=== PATIENT | female | born 1990 | race Caucasian/White ===

== ENCOUNTER 2016-03-22 01:53 | Emergency (ER) | payer OTHER ==
[~2016-03-22] VITALS: Ht 149.8 cm; Wt 98.4 kg
[~2016-03-22 01:53] MED LIST: ANTIVERT25 MG PO; BACTRIM DS 8001 TA1 PO; BIRTH CONTROL IMPLAN; BIRTH CONTROL1 EAC1 PO; CATAFLAM50 MG PO; CIPRO250 MG PO; CLARITIN10 MG PO; DARVOCET N 1001 TAB PO; DIFLUCAN150 MG PO; FLEXERIL5 MG PO; IBUPROFEN600 MG PO; LINZESS145 MC1 PO; MACROBID100 M1 PO; MOBIC15 MG PO; MOTRIN600 MG PO; MOTRIN800 MG PO; NAPROSYN500 MG PO; NEXPLANON68 M2 SQ; NITROFURANTOIN100 M2 PO; PRENATAL1 TA7 PO; ULTRAM50 MG PO; ZANTAC 150150 MG PO; ZANTAC150 MG PO; ZITHROMAX Z PA250 MG PO; ZOFRAN ODT4 MG SL; Zofran4 MG PO
[2016-03-22 02:00] VITALS: BP 139/86
[2016-03-22] MEDS ORDERED: TYLENOL325 M1 PO (02:41)
[2016-04-23] MEDS ORDERED: ZOVIRAX800 MG PO (09:32)
[2016-05-03] MEDS ORDERED: DELTASONE20 M1 PO (03:51)
[2016-05-03] MEDS ORDERED: IBU800 M1 PO (03:51)
[2016-05-03] MEDS ORDERED: ZOFRAN ODT4 MG SL (03:51)
== END 2016-03-22 03:52 | disposition home or self-care (01) ==
LOC: ED 01:53
DX: S93.401A Sprain of unspecified ligament of right ankle, initial encounter (principal); Z98.890 Other specified postprocedural states; Z91.040 Latex allergy status; W18.49XA Other slipping, tripping and stumbling without falling, initial encounter; Y93.89 Activity, other specified; Y92.69 Other specified industrial and construction area as the place of occurrence of the external cause; Y99.9 Unspecified external cause status

== ENCOUNTER 2016-09-19 10:49 | Emergency (ER) | payer OTHER ==
[~2016-09-19] VITALS: Ht 149.8 cm; Wt 98.4 kg
[~2016-09-19 10:49] MED LIST changes: +DELTASONE20 M1 PO; +IBU800 M1 PO; +TYLENOL325 M1 PO; +ZOVIRAX800 MG PO
[2016-09-19 11:12] VITALS: BP 137/98
[2016-09-19] MEDS ORDERED: NAPROSYN500 MG PO (13:37)
[2016-09-19] MEDS ORDERED: CYCLOBENZAPRINE5 M3 PO (13:37)
== END 2016-09-19 13:42 | disposition home or self-care (01) ==
LOC: ED 10:49
DX: S39.012A Strain of muscle, fascia and tendon of lower back, initial encounter (principal); Z91.040 Latex allergy status; Z91.030 Bee allergy status; X58.XXXA Exposure to other specified factors, initial encounter; Y93.89 Activity, other specified; Y92.89 Other specified places as the place of occurrence of the external cause; Y99.8 Other external cause status

== ENCOUNTER 2017-01-31 22:05 | Emergency (ER) | payer OTHER ==
[~2017-01-31] VITALS: Ht 149.8 cm; Wt 102.1 kg
[~2017-01-31 22:05] MED LIST changes: +CYCLOBENZAPRINE5 M3 PO
[2017-01-31 22:26] VITALS: BP 130/96
== END 2017-01-31 23:07 | disposition home or self-care (01) ==
LOC: ED 22:05
DX: J40 Bronchitis, not specified as acute or chronic (principal); J02.9 Acute pharyngitis, unspecified; Z91.040 Latex allergy status; Z91.030 Bee allergy status; Z88.8 Allergy status to other drugs, medicaments and biological substances

== ENCOUNTER 2017-04-23 16:01 | Emergency (ER) | payer OTHER ==
[~2017-04-23] VITALS: Ht 149.8 cm; Wt 108.9 kg
[2017-04-23 16:20] VITALS: BP 142/88
[2017-04-23] MEDS ORDERED: ZOFRAN ODT4 MG SL (17:48)
[2017-04-23] MEDS ORDERED: PROAIR HFA8.5 GM INH (17:48)
[2017-04-23] MEDS ORDERED: TESSALON PERLE100 M1 PO (17:48)
== END 2017-04-23 17:59 | disposition home or self-care (01) ==
LOC: ED 16:01
DX: B34.9 Viral infection, unspecified (principal); Z98.890 Other specified postprocedural states; Z91.040 Latex allergy status; Z91.030 Bee allergy status

== ENCOUNTER → 2018-05-26 | Outpatient (CLI) | payer OTHER ==
[~2018-05-26] MED LIST changes: +LEVAQUIN250 M1 PO; +Motrin,Rufen800 MG PO; +PROAIR HFA8.5 GM INH; +TESSALON PERLE100 M1 PO
--- NOTE | ~2018-05-26 | HM ---
[place], [place] HOLTER MONITOR REPORT NAME: HOSEA MCMANUS UNIT #: [id number] ROOM: DOCTOR: ILDA PIZANO,QUENTIN BIRTHDATE: [birth year] DOS: 48-HOUR HOLTER MONITOR The patient with palpitations underwent 48-hour Holter monitor. The patient remained in sinus rhythm. Minimum heart rate of 58, average heart rate of 86. Maximum heart rate of 160 beats per minute. No significant ventricular or supraventricular dysrhythmia is present. The patient had few episodes of what appears to be sinus tachycardia. No ventricular dysrhythmia. No significant pauses. Isolated PACs are present. Sinus rhythm with episodes of sinus tachycardia, isolated PACs, no significant ventricular or supraventricular dysrhythmia. QUENTIN GONSALES MD CM:HOLTER:HOLTER MONITOR REPORT [id number] QUENTIN GONSALES MD
== END | disposition home or self-care (01) ==
LOC: CARD 10:30
DX: I49.9 Cardiac arrhythmia, unspecified (principal); R00.2 Palpitations

== ENCOUNTER 2018-11-13 18:58 | Emergency (ER) | payer OTHER ==
[~2018-11-13] VITALS: Ht 149.8 cm; Wt 88.5 kg
[2018-11-13 19:00] VITALS: BP 145/87
[2018-11-13] MEDS ORDERED: PREDNISONE50 MG PO (20:30)
== END 2018-11-13 20:35 | disposition home or self-care (01) ==
LOC: ED 18:58
DX: M26.622 Arthralgia of left temporomandibular joint (principal); G43.909 Migraine, unspecified, not intractable, without status migrainosus; Z91.040 Latex allergy status; Z91.030 Bee allergy status

== ENCOUNTER 2019-01-13 15:04 | Inpatient (IN) | payer OTHER ==
[~2019-01-13] VITALS: Ht 149.9 cm; Wt 91.3 kg
[~2019-01-13 15:04] MED LIST changes: +PREDNISONE50 MG PO
[2019-01-13 16:00] VITALS: BP 138/89
[2019-01-13 16:20] VITALS: BP 138/89
--- NOTE | 2019-01-13 16:20 | NUR ---
28 year old 27 admitted to room # female for stabilization. 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 Compliant with admission procedure. Patient denies any anxiety.
--- NOTE | 2019-01-13 16:55 | NUR ---
PATIENT MEETS [facility]. CINA=15, CIWA=17. PATIENT IS WANTING RESIDENTIAL TREATMENT AT [facility]. [place] STAFF WILL SEND REFERRAL TO FACILITY. NAOMY WARNER B.A. ENAMEL PULVERIZER
[2019-01-13 17:00] VITALS: BP 138/99
[2019-01-13 18:35] LABS: BILIRUBIN NEGATIVE (NEGATIVE); BLOOD NEGATIVE (NEGATIVE); CLARITY SL CLOUDY (CLEAR); COLOR YELLOW (YELLOW); GLUCOSE NEGATIVE (NEGATIVE); KETONE NEGATIVE (NEGATIVE); LEUKO ESTERASE NEGATIVE (NEGATIVE); NITRITE NEGATIVE (NEGATIVE); SPECIFIC GRAVITY 1.025 (1.005-1.030); UROBILINOGEN 0.2 E.U./dl (0.2-1.0)
[2019-01-13 18:43] LABS: BACTERIA 3+
[2019-01-13 18:51] LABS: URINE AMPHETAMINES < 1000 (1000ng/ml); URINE BARBITURATES < 200 (200ng/ml); URINE BENZODIAZEPINES < 200 (200ng/ml); URINE CANNABINOIDS (THC) < 50 (50ng/ml); URINE COCAINE < 300 (300ng/ml); URINE METHADONE < 300 (300ng/ml); URINE OPIATES < 300 (300ng/ml)
[2019-01-13 18:58] LABS: URINE PHENCYCLIDINE < 25 (25ng/ml)
[2019-01-13 19:13] LABS: BASO % 0.2 % (0.0-1.0); EOS # 0.1 10*3/uL (0.0-0.4); EOS % 0.5 % (1.0-4.0); HEMOGLOBIN 11.1 g/dl (12.0-16.0); LYMPH # 2.7 10*3/uL (1.3-4.4); LYMPH % 24.5 % (27.0-41.0); MEAN CELL VOLUME 84.4 fl (81.0-99.0); MEAN CORPUSCULAR HGB 27.5 pg (27.0-31.0); MEAN CORPUSCULAR HGB CONC 32.6 g/dl (33.0-37.0); MEAN PLATELET VOLUME 12.1 fl (9.6-12.3); MONO # 0.6 10*3/uL (0.1-1.0); MONO % 5.6 % (3.0-9.0); NEUT # 7.6 10*3/uL (2.3-7.9); NEUT % 68.9 % (47.0-73.0); PLATELET COUNT AUTOMATED 314 10*3/uL (130-400); RED BLOOD COUNT 4.03 10*6/uL (4.10-5.10); RED CELL DISTRI WIDTH 15.4 % (0-14.5)
[2019-01-13 19:23] LABS: INTERNATIONAL NORM RATIO 0.9 (2.0-3.5)
--- NOTE | 2019-01-13 19:47 | NUR ---
PATIENT C/O HEADACHE MEDICATED WITH MOTRIN WILL CHECK EFFECTIVENESS.
[2019-01-13 20:00] VITALS: BP 111/66
[2019-01-13 20:06] LABS: ALBUMIN 3.5 gm/dl (3.1-4.5); ALKALINE PHOSPHATASE 56 U/L (45-117); BUN 5 mg/dl (7-24); CHLORIDE 107 mmol/L (98-107); CREATININE 0.78 mg/dL (0.55-1.02); LIPASE 119 U/L (73-393); POTASSIUM 3.7 mmol/L (3.5-5.1); SGOT/AST 28 IU/L (3-35); SGPT/ALT 25 U/L (12-78); SODIUM 139 mmol/L (136-145); TOTAL PROTEIN 7.1 gm/dL (6.4-8.2)
[2019-01-13 20:10] LABS: BETA-HCG, QUANT < 1.0 mIU/mL (1-3); ETHYL ALCOHOL < 3.0 mg/dl (<3)
--- NOTE | 2019-01-13 22:17 | NUR ---
PATIENT MEDICATE WITH ROBAXIN AND TRAZADONE PER REQUEST FOR COMPLAINTS OF MUSCLE ACHES. WILL CHECK EFFECTIVENESS. PER PATIENT MOTRIN EFFECTIVE.
[2019-01-14] VITALS: BP 103/51
[2019-01-14 08:00] VITALS: BP 116/53
--- NOTE | 2019-01-14 11:08 | NUR ---
PATIENT HAS BEEN ACCEPTED TO [facility] IN [place] FOR RESIDENTIAL TREATMENT. THEY HAVE A BED AVAILBLE FOR HER ON FRIDAY, January BY NOON. [place] STAFF WILL SET UP TRANSPORATION FOR HER THROUGH HER INSURANCE. NAOMY WARNER B.A. BLOWER ROOM ATTENDANT
[2019-01-14 12:00] VITALS: BP 120/56
[2019-01-14 16:00] VITALS: BP 110/86
[2019-01-14 20:00] VITALS: BP 121/70
--- NOTE | 2019-01-14 22:10 | NUR ---
PATIENT REFUSES TO TAKE SCHEDULED ATIVAN. STATES THAT SHE IS NOT HAVING ANY SYMPTOMS OF WITHDRAWAL AND DOES NOT FEEL SHE NEEDS TO TAKE THE ATIVAN. PATIENT EDUCATED ON WITHDRAWAL SYMPTOMS AND PREVENTING THEM.
[2019-01-15] VITALS: BP 144/76; BP 144/95
--- NOTE | 2019-01-15 01:52 | NUR ---
PATIENT REQUESTING SLEEPING MEDICATION AT THIS TIME. STATES SHE IS UNABLE TO FALL ASLEEP. TRAZADONE ADMINISTERED PRESCRIBED. WILL MONITOR FOR EFFECTIVENESS.
--- NOTE | 2019-01-15 02:44 | NUR ---
24 HR chart check completed.
--- NOTE | 2019-01-15 07:05 | NUR ---
ARRIVED ON SHIFT. INTRODUCED TO PATIENT, BEDSIDE REPORT RECEIVED, ASSISTED PATIENT ONTO BED OSHEA, WHITE BOARD UPDATED.
--- NOTE | 2019-01-15 07:57 | NUR ---
Shift chart check completed.
[2019-01-15 08:00] VITALS: BP 122/76
[2019-01-15 12:00] VITALS: BP 110/62
--- NOTE | 2019-01-15 16:05 | NUR ---
CALL PLACED TO DR. KEVIN, ADVISED THAT PATIENT WAS LEAVING AMA.
--- NOTE | 2019-01-15 16:10 | NUR ---
Patient signed out AMA. Patient encouraged to stay and advised of possible consequences of premature discharge. Physician DR. KEVIN and pigment making supervisor AUSTIN notified. Patient instructed what to do regarding care post-departure from the hospital; emergency phone numbers provided. Patent was accompanied by SELF, NO IV, NO MONITOR. JANET MICHELLE
== END 2019-01-15 16:10 | disposition left against medical advice (07) | DRG 770 ==
LOC: 5E 15:04
PROVIDERS: Hospitalist; ADMIT Internal Medicine
DX: F19.930 Other psychoactive substance use, unspecified with withdrawal, uncomplicated (principal); F10.10 Alcohol abuse, uncomplicated; R11.0 Nausea; D64.9 Anemia, unspecified; Z53.29 Procedure and treatment not carried out because of patient's decision for other reasons; G43.909 Migraine, unspecified, not intractable, without status migrainosus; R73.9 Hyperglycemia, unspecified; E66.01 Morbid (severe) obesity due to excess calories; Z68.41 Body mass index [BMI] 40.0-44.9, adult; Z98.891 History of uterine scar from previous surgery; Z98.51 Tubal ligation status; Z81.1 Family history of alcohol abuse and dependence; Z83.3 Family history of diabetes mellitus; Z81.3 Family history of other psychoactive substance abuse and dependence; Z91.030 Bee allergy status; Z91.040 Latex allergy status; Z91.018 Allergy to other foods

== ENCOUNTER 2019-02-11 20:11 | Emergency (ER) | payer OTHER ==
[~2019-02-11] VITALS: Ht 149.8 cm; Wt 88.5 kg
[2019-02-11 20:12] VITALS: BP 142/86
== END 2019-02-11 23:56 | disposition home or self-care (01) ==
LOC: ED 20:11
DX: G43.909 Migraine, unspecified, not intractable, without status migrainosus (principal); J45.909 Unspecified asthma, uncomplicated; I10 Essential (primary) hypertension; F17.200 Nicotine dependence, unspecified, uncomplicated; Z91.018 Allergy to other foods; Z91.040 Latex allergy status; Z91.030 Bee allergy status

== ENCOUNTER 2019-07-21 23:04 | Inpatient (IN) | payer OTHER ==
[~2019-07-21] VITALS: Ht 149.9 cm; Wt 96.6 kg
[2019-07-21 20:00] VITALS: BP 126/68
[2019-07-21 23:13] VITALS: BP 117/64
[2019-07-22] VITALS (7 sets, daily range): BP systolic 99–122; BP diastolic 56–81
[2019-07-22 00:29] LABS: HEMATOCRIT 35.9 % (37.0-47.0); MEAN CORPUSCULAR HGB 25.6 pg (27.0-31.0); MEAN PLATELET VOLUME 11.5 fl (9.6-12.3); PLATELET COUNT AUTOMATED 333 10*3/uL (130-400); RED BLOOD COUNT 4.49 10*6/uL (4.10-5.10); RED CELL DISTRI WIDTH 15.3 % (0-14.5)
[2019-07-22 00:43] LABS: ALBUMIN 3.3 gm/dl (3.1-4.5); ALKALINE PHOSPHATASE 67 U/L (45-117); BUN 9 mg/dl (7-24); CHLORIDE 108 mmol/L (98-107); CREATININE 0.77 mg/dL (0.55-1.02); LIPASE 52 U/L (73-393); POTASSIUM 3.4 mmol/L (3.5-5.1); SGOT/AST 9 IU/L (3-35); SGPT/ALT 24 U/L (12-78); SODIUM 138 mmol/L (136-145); TOTAL PROTEIN 7.3 gm/dL (6.4-8.2)
[2019-07-22 00:52] LABS: BILIRUBIN NEGATIVE (NEGATIVE); BLOOD 2+ (NEGATIVE); CLARITY SL CLOUDY (CLEAR); COLOR YELLOW (YELLOW); GLUCOSE NEGATIVE (NEGATIVE); KETONE NEGATIVE (NEGATIVE); LEUKO ESTERASE 1+ (NEGATIVE); NITRITE NEGATIVE (NEGATIVE); SPECIFIC GRAVITY 1.015 (1.005-1.030); UROBILINOGEN 0.2 E.U./dl (0.2-1.0)
[2019-07-22 00:54] LABS: PLATELET SUFFICIENCY NORMAL (NORMAL); TOTAL CELLS COUNTED 100 #CELLS
[2019-07-22 00:55] LABS: EPITHELIAL CELLS 31-40
[2019-07-22 01:00] LABS: WBC 31-40 wbc/hpf (0-5)
[2019-07-22 02:25] LABS: HEMATOCRIT 33.6 % (37.0-47.0); MEAN CELL VOLUME 80.8 fl (81.0-99.0); MEAN CORPUSCULAR HGB 25.7 pg (27.0-31.0); MEAN CORPUSCULAR HGB CONC 31.8 g/dl (33.0-37.0); MEAN PLATELET VOLUME 10.8 fl (9.6-12.3); PLATELET COUNT AUTOMATED 285 10*3/uL (130-400); RED BLOOD COUNT 4.16 10*6/uL (4.10-5.10); RED CELL DISTRI WIDTH 15.1 % (0-14.5); WHITE BLOOD COUNT 31.1 10*3/uL (4.8-10.8)
[2019-07-22 02:46] LABS: PLATELET SUFFICIENCY NORMAL (NORMAL); TOTAL CELLS COUNTED 100 #CELLS
[2019-07-22 11:09] LABS: URINE AMPHETAMINES < 1000 (1000ng/ml); URINE BARBITURATES < 200 (200ng/ml); URINE BENZODIAZEPINES < 200 (200ng/ml); URINE CANNABINOIDS (THC) < 50 (50ng/ml); URINE COCAINE < 300 (300ng/ml); URINE METHADONE < 300 (300ng/ml); URINE OPIATES > 300 (300ng/ml)
[2019-07-22 11:10] LABS: URINE PHENCYCLIDINE < 25 (25ng/ml)
[2019-07-22] MEDS ORDERED: TRAZODONE100 MG PO (14:27)
[2019-07-23] VITALS: BP 129/78
[2019-07-23 06:27] LABS: BASO % 0.1 % (0.0-1.0); EOS # 0.1 10*3/uL (0.0-0.4); EOS % 0.5 % (1.0-4.0); HEMATOCRIT 33.5 % (37.0-47.0); LYMPH # 2.2 10*3/uL (1.3-4.4); LYMPH % 10.8 % (27.0-41.0); MEAN CELL VOLUME 82.3 fl (81.0-99.0); MEAN CORPUSCULAR HGB 25.3 pg (27.0-31.0); MEAN CORPUSCULAR HGB CONC 30.7 g/dl (33.0-37.0); MEAN PLATELET VOLUME 11.2 fl (9.6-12.3); MONO # 0.6 10*3/uL (0.1-1.0); MONO % 2.8 % (3.0-9.0); NEUT # 17.7 10*3/uL (2.3-7.9); PLATELET COUNT AUTOMATED 285 10*3/uL (130-400); RED BLOOD COUNT 4.07 10*6/uL (4.10-5.10); RED CELL DISTRI WIDTH 15.7 % (0-14.5); WHITE BLOOD COUNT 20.8 10*3/uL (4.8-10.8)
[2019-07-23 06:44] LABS: BUN 9 mg/dl (7-24); CHLORIDE 111 mmol/L (98-107); CHOLESTEROL 163 mg/dL (<200); CREATININE 0.84 mg/dL (0.55-1.02); HDL CHOLESTEROL 38 mg/dl (40-60); LDL CHOLESTEROL 97 mg/dL (9-159); SODIUM 142 mmol/L (136-145); TRIGLYCERIDES 138 mg/dl (<150); VLDL CHOLESTEROL 28 mg/dL (6-40)
[2019-07-23 06:51] LABS: THYROID STIM HORMONE (HS) 0.246 uIU/ml (0.358-4.75)
[2019-07-23 12:00] VITALS: BP 127/79
[2019-07-23 16:00] VITALS: BP 106/57
[2019-07-23 20:00] VITALS: BP 126/68
[2019-07-24] VITALS: BP 99/57
[2019-07-24 06:19] LABS: BASO % 0.1 % (0.0-1.0); EOS # 0.4 10*3/uL (0.0-0.4); EOS % 2.6 % (1.0-4.0); HEMATOCRIT 31.7 % (37.0-47.0); LYMPH # 2.9 10*3/uL (1.3-4.4); LYMPH % 21.4 % (27.0-41.0); MEAN CELL VOLUME 81.1 fl (81.0-99.0); MEAN CORPUSCULAR HGB 25.1 pg (27.0-31.0); MEAN CORPUSCULAR HGB CONC 30.9 g/dl (33.0-37.0); MEAN PLATELET VOLUME 11.3 fl (9.6-12.3); MONO # 0.7 10*3/uL (0.1-1.0); MONO % 4.8 % (3.0-9.0); NEUT # 9.7 10*3/uL (2.3-7.9); NEUT % 70.4 % (47.0-73.0); PLATELET COUNT AUTOMATED 315 10*3/uL (130-400); RED BLOOD COUNT 3.91 10*6/uL (4.10-5.10); RED CELL DISTRI WIDTH 15.6 % (0-14.5); WHITE BLOOD COUNT 13.7 10*3/uL (4.8-10.8)
[2019-07-24 06:40] LABS: BUN 5 mg/dl (7-24); CHLORIDE 113 mmol/L (98-107); CREATININE 0.66 mg/dL (0.55-1.02); POTASSIUM 3.1 mmol/L (3.5-5.1); SODIUM 142 mmol/L (136-145)
[2019-07-24 08:00] VITALS: BP 118/61
[2019-07-24 12:00] VITALS: BP 137/71
[2019-07-24 12:15] VITALS: BP 128/80
[2019-07-24] MEDS ORDERED: CIPRO500 MG PO (14:34)
[2019-07-24] MEDS ORDERED: FLAGYL500 MG PO (14:34)
[2019-07-24] MEDS ORDERED: PROTONIX40 MG PO (14:34)
== END 2019-07-24 14:40 | disposition left against medical advice (07) | DRG 720 ==
LOC: ED 23:04 → EDHOLD 07-22 08:23 → 4E 07-22 08:23
PROVIDERS: Emergency Medicine; Student in an Organized Health Care Education/Training Program; ADMIT Internal Medicine
PROC: 0DB68ZX Excision of Stomach, Via Natural or Artificial Opening Endoscopic, Diagnostic (ICD-10-PCS; principal; 2019-07-24)
PROC: 0DJD8ZZ Inspection of Lower Intestinal Tract, Via Natural or Artificial Opening Endoscopic (ICD-10-PCS; 2019-07-24)
DX: A41.9 Sepsis, unspecified organism (principal); E87.6 Hypokalemia; E87.8 Other disorders of electrolyte and fluid balance, not elsewhere classified; K52.9 Noninfective gastroenteritis and colitis, unspecified; R73.9 Hyperglycemia, unspecified; F12.10 Cannabis abuse, uncomplicated; F10.230 Alcohol dependence with withdrawal, uncomplicated; Y90.9 Presence of alcohol in blood, level not specified; R48.0 Dyslexia and alexia; F33.0 Major depressive disorder, recurrent, mild; F41.1 Generalized anxiety disorder; K29.20 Alcoholic gastritis without bleeding; N30.01 Acute cystitis with hematuria; A59.9 Trichomoniasis, unspecified; K57.30 Diverticulosis of large intestine without perforation or abscess without bleeding; D50.0 Iron deficiency anemia secondary to blood loss (chronic); K62.5 Hemorrhage of anus and rectum; Z53.29 Procedure and treatment not carried out because of patient's decision for other reasons; Z81.1 Family history of alcohol abuse and dependence; Z83.3 Family history of diabetes mellitus; Z91.030 Bee allergy status; Z91.040 Latex allergy status; Z91.018 Allergy to other foods; Z79.899 Other long term (current) drug therapy

== ENCOUNTER 2020-12-10 18:42 | Emergency (ER) | payer OTHER ==
[~2020-12-10] VITALS: Ht 149.8 cm; Wt 90.7 kg
[~2020-12-10 18:42] MED LIST changes: +CIPRO500 MG PO; +FLAGYL500 MG PO; +PROTONIX40 MG PO; +TRAZODONE100 MG PO
[2020-12-10 18:48] VITALS: BP 142/97
[2020-12-11] MEDS ORDERED: AUGMENTIN 875875 MG PO (02:06)
== END 2020-12-11 03:00 | disposition home or self-care (01) ==
LOC: ED 18:42
DX: J02.9 Acute pharyngitis, unspecified (principal); Z20.822 Contact with and (suspected) exposure to COVID-19; R51.9 Headache, unspecified; Z91.040 Latex allergy status; Z91.018 Allergy to other foods; Z91.030 Bee allergy status

== ENCOUNTER → 2021-01-01 | Outpatient (CLI) | payer OTHER ==
[~2021-01-01] MED LIST changes: +AUGMENTIN 875875 MG PO
[2021-01-01 16:31] LABS: BASO % 0.2 % (0.0-1.0); EOS # 0.1 10*3/uL (0.0-0.4); EOS % 1.2 % (1.0-4.0); HEMATOCRIT 37.5 % (37.0-47.0); LYMPH # 3.1 10*3/uL (1.3-4.4); LYMPH % 27.3 % (27.0-41.0); MEAN CELL VOLUME 80.5 fl (81.0-99.0); MEAN CORPUSCULAR HGB 23.6 pg (27.0-31.0); MEAN CORPUSCULAR HGB CONC 29.3 g/dl (33.0-37.0); MEAN PLATELET VOLUME 11.4 fl (9.6-12.3); MONO # 0.8 10*3/uL (0.1-1.0); MONO % 6.8 % (3.0-9.0); NEUT # 7.2 10*3/uL (2.3-7.9); NEUT % 64.2 % (47.0-73.0); PLATELET COUNT AUTOMATED 281 10*3/uL (130-400); RED BLOOD COUNT 4.66 10*6/uL (4.10-5.10); RED CELL DISTRI WIDTH 16.6 % (0-14.5); WHITE BLOOD COUNT 11.3 10*3/uL (4.8-10.8)
[2021-01-01 16:49] LABS: ALBUMIN 3.3 gm/dl (3.1-4.5); ALKALINE PHOSPHATASE 62 U/L (45-117); BUN 6 mg/dl (7-24); CHLORIDE 112 mmol/L (98-107); CREATININE 0.67 mg/dL (0.55-1.02); POTASSIUM 3.8 mmol/L (3.5-5.1); SGOT/AST 12 IU/L (3-35); SGPT/ALT 25 U/L (12-78); SODIUM 141 mmol/L (136-145); TOTAL IRON BINDING CAPACITY 372 ug/dl (250-450)
[2021-01-01 16:53] LABS: IRON 24 ug/dL (50-170)
[2021-01-02 10:15] LABS: FERRITIN 5.6 ng/mL (10.0-291.0)
[2021-01-03 15:07] LABS: MYCOPLASMA PNEUMONIAE IGG 1201 U/mL (0-99); MYCOPLASMA PNEUMONIAE IGM <770 U/mL (0-769)
[2021-01-05 22:05] LABS: PARAINFLUENZA 1 CF 1:16 (Neg:<1:8); PARAINFLUENZA 3 CF Negative (Neg:<1:8)
== END | disposition home or self-care (01) ==
LOC: LAB 16:06
PROVIDERS: ATTEND Nurse Practitioner Family
DX: R53.83 Other fatigue (principal); R05.9 Cough, unspecified; D64.9 Anemia, unspecified; M79.10 Myalgia, unspecified site

== ENCOUNTER → 2021-03-29 | Outpatient (CLI) | payer OTHER | END | disposition home or self-care (01) | LOC: RAD 15:17 | PROVIDERS: ATTEND Nurse Practitioner Family | DX: J98.11 Atelectasis (principal) ==

== ENCOUNTER → 2021-07-24 | Outpatient (CLI) | payer OTHER | END | disposition home or self-care (01) | LOC: RAD 10:24 | PROVIDERS: ATTEND Nurse Practitioner Family | DX: R05.9 Cough, unspecified (principal); R06.2 Wheezing ==

== ENCOUNTER → 2021-11-02 | Outpatient (CLI) | payer OTHER ==
[2021-11-02 09:50] LABS: BASO % 0.3 % (0.0-1.0); EOS # 0.3 10*3/uL (0.0-0.4); EOS % 3.1 % (1.0-4.0); HEMATOCRIT 34.5 % (37.0-47.0); LYMPH # 2.4 10*3/uL (1.3-4.4); LYMPH % 30.1 % (27.0-41.0); MEAN CELL VOLUME 79.3 fl (81.0-99.0); MEAN CORPUSCULAR HGB 24.1 pg (27.0-31.0); MEAN CORPUSCULAR HGB CONC 30.4 g/dl (33.0-37.0); MEAN PLATELET VOLUME 11.3 fl (9.6-12.3); MONO # 0.5 10*3/uL (0.1-1.0); MONO % 5.9 % (3.0-9.0); NEUT # 4.8 10*3/uL (2.3-7.9); NEUT % 60.2 % (47.0-73.0); PLATELET COUNT AUTOMATED 358 10*3/uL (130-400); RED BLOOD COUNT 4.35 10*6/uL (4.10-5.10); RED CELL DISTRI WIDTH 16.2 % (0-14.5)
[2021-11-02 10:32] LABS: ALKALINE PHOSPHATASE 64 U/L (45-117); BUN 8 mg/dl (7-24); CHLORIDE 110 mmol/L (98-107); CREATININE 0.79 mg/dL (0.55-1.02); IRON 17 ug/dL (50-170); POTASSIUM 3.7 mmol/L (3.5-5.1); SGOT/AST 11 IU/L (3-35); SGPT/ALT 23 U/L (12-78); SODIUM 142 mmol/L (136-145); TOTAL PROTEIN 6.7 gm/dL (6.4-8.2)
[2021-11-03 04:06] LABS: LUTEINIZING HORMONE 3.5 mIU/mL (.); PROLACTIN 9.4 ng/mL (4.8-23.3)
[2021-11-07 03:06] LABS: TESTOSTERONE FREE, (DIRECT) 1.3 pg/mL (0.0-4.2)
== END | disposition home or self-care (01) ==
LOC: LAB 09:01
PROVIDERS: ATTEND Nurse Practitioner Family
DX: E53.8 Deficiency of other specified B group vitamins (principal); N92.6 Irregular menstruation, unspecified; N92.1 Excessive and frequent menstruation with irregular cycle; D64.9 Anemia, unspecified

== ENCOUNTER 2022-05-03 13:47 | Emergency (ER) | payer OTHER ==
[~2022-05-03] VITALS: Ht 149.9 cm; Wt 90.7 kg
[2022-05-03 13:54] VITALS: BP 126/66
[2022-05-03] MEDS ORDERED: METHOCARBAMOL500 M1 PO (17:42)
== END 2022-05-03 18:27 | disposition home or self-care (01) ==
LOC: ED 13:47
DX: S40.012A Contusion of left shoulder, initial encounter (principal); S20.222A Contusion of left back wall of thorax, initial encounter; S00.93XA Contusion of unspecified part of head, initial encounter; Z98.890 Other specified postprocedural states; Z90.89 Acquired absence of other organs; Z91.030 Bee allergy status; Z91.040 Latex allergy status; Z91.018 Allergy to other foods; W01.0XXA Fall on same level from slipping, tripping and stumbling without subsequent striking against object, initial encounter; Y93.89 Activity, other specified; Y92.89 Other specified places as the place of occurrence of the external cause; Y99.8 Other external cause status

== ENCOUNTER 2023-04-14 18:38 | Emergency (ER) | payer OTHER ==
[~2023-04-14] VITALS: Wt 95.3 kg
[~2023-04-14 18:38] MED LIST changes: +METHOCARBAMOL500 M1 PO
[2023-04-14 18:48] VITALS: BP 144/104
[2023-04-14] MEDS ORDERED: Motrin,Rufen800 MG PO (20:42)
[2023-04-14] MEDS ORDERED: Ketorolac Tromethamine 60 MG/2 ML VIAL IM ONE (20:45)
== END 2023-04-14 20:47 | disposition home or self-care (01) ==
LOC: ED 18:38
DX: S60.031A Contusion of right middle finger without damage to nail, initial encounter (principal); F31.9 Bipolar disorder, unspecified; E78.00 Pure hypercholesterolemia, unspecified; E87.6 Hypokalemia; R73.9 Hyperglycemia, unspecified; D64.9 Anemia, unspecified; I10 Essential (primary) hypertension; J45.909 Unspecified asthma, uncomplicated; G43.909 Migraine, unspecified, not intractable, without status migrainosus; F10.10 Alcohol abuse, uncomplicated; F12.90 Cannabis use, unspecified, uncomplicated; Z91.018 Allergy to other foods; Z91.040 Latex allergy status; Z91.030 Bee allergy status; Z90.89 Acquired absence of other organs; Z98.890 Other specified postprocedural states; W01.10XA Fall on same level from slipping, tripping and stumbling with subsequent striking against unspecified object, initial encounter; Y93.89 Activity, other specified; Y92.89 Other specified places as the place of occurrence of the external cause; Y99.8 Other external cause status

== ENCOUNTER → 2023-06-18 | Outpatient (CLI) | payer OTHER | END | disposition home or self-care (01) | LOC: CARD 00:33 | PROVIDERS: ATTEND Internal Medicine Cardiovascular Disease | DX: R00.0 Tachycardia, unspecified (principal) ==

== ENCOUNTER 2023-08-27 23:35 | Emergency (ER) | payer OTHER ==
[~2023-08-27] VITALS: Ht 149.8 cm; Wt 101.7 kg
[2023-08-27 23:42] VITALS: BP 149/97
[2023-08-27] MEDS ORDERED: TOPIRAMATE100 M2 PO (23:51)
[2023-08-27] MEDS ORDERED: SODIUM CHLORIDE 0.9% 1,000 ML IV ONE (23:55)
[2023-08-27] MEDS ORDERED: Ketorolac Tromethamine 30 MG/ML VIAL IV ONE (23:55)
[2023-08-27] MEDS ORDERED: Ondansetron Hydrochloride 4 MG/2 ML VIAL IV ONE (23:55)
[2023-08-27] MEDS ORDERED: diphenhydrAMINE hydrochloride 50 MG/ML VIAL IV ONE (23:55)
== END 2023-08-28 01:51 | disposition home or self-care (01) ==
LOC: ED 23:35
DX: G43.909 Migraine, unspecified, not intractable, without status migrainosus (principal); R20.0 Anesthesia of skin; I10 Essential (primary) hypertension; J45.909 Unspecified asthma, uncomplicated; Z91.040 Latex allergy status; Z91.030 Bee allergy status; Z91.018 Allergy to other foods; Z98.890 Other specified postprocedural states; Z90.89 Acquired absence of other organs; F10.10 Alcohol abuse, uncomplicated; F12.90 Cannabis use, unspecified, uncomplicated

== ENCOUNTER 2024-01-07 15:01 | Emergency (ER) | payer OTHER ==
[~2024-01-07] VITALS: Ht 162.5 cm; Wt 79.8 kg
[~2024-01-07 15:01] MED LIST changes: +TOPIRAMATE100 M2 PO
[2024-01-07 15:27] VITALS: BP 163/81
[2024-01-07] MEDS ORDERED: TRAMADOL HCL50 MG PO (15:55)
[2024-01-07] MEDS ORDERED: ACETAMINOPHEN 325 MG TAB PO ONE (15:55)
[2024-01-07 16:09] LABS: BASO % 0.2 % (0.0-1.0); EOS % 0.1 % (1.0-4.0); HEMATOCRIT 43.1 % (37.0-47.0); MEAN CELL VOLUME 83.2 fl (81.0-99.0); MEAN CORPUSCULAR HGB 25.5 pg (27.0-31.0); MEAN CORPUSCULAR HGB CONC 30.6 g/dl (33.0-37.0); MEAN PLATELET VOLUME 10.5 fl (9.6-12.3); MONO # 0.3 10*3/uL (0.1-1.0); MONO % 2.3 % (3.0-9.0); NEUT # 10.5 10*3/uL (2.3-7.9); NEUT % 86.6 % (47.0-73.0); PLATELET COUNT AUTOMATED 389 10*3/uL (130-400); RED BLOOD COUNT 5.18 10*6/uL (4.10-5.10); RED CELL DISTRI WIDTH 15.1 % (0-14.5); WHITE BLOOD COUNT 12.1 10*3/uL (4.8-10.8)
[2024-01-07 16:32] LABS: BUN 8 mg/dl (9-23); CHLORIDE 109 mmol/L (98-107)
[2024-01-07 16:46] LABS: BILIRUBIN Negative (Negative); BLOOD Negative (Negative); CLARITY Clear (Clear); COLOR Yellow (Yellow); GLUCOSE Negative (Negative); KETONE Negative (Negative); LEUKO ESTERASE 2+ (Negative); NITRITE Negative (Negative)
[2024-01-07 17:44] LABS: BACTERIA 1+
[2024-01-07] MEDS ORDERED: SEPTDS PO (17:54)
== END 2024-01-07 18:36 | disposition home or self-care (01) ==
LOC: ED 15:01
PROVIDERS: Physician Assistant Medical
DX: B34.9 Viral infection, unspecified (principal); Z20.822 Contact with and (suspected) exposure to COVID-19; N39.0 Urinary tract infection, site not specified; F31.9 Bipolar disorder, unspecified; F41.9 Anxiety disorder, unspecified; Z91.018 Allergy to other foods; Z91.040 Latex allergy status; Z91.030 Bee allergy status; Z79.899 Other long term (current) drug therapy; Z98.890 Other specified postprocedural states

== ENCOUNTER 2024-02-12 08:41 | Emergency (ER) | payer OTHER ==
[~2024-02-12] VITALS: Ht 149.8 cm; Wt 103.9 kg
[~2024-02-12 08:41] MED LIST changes: +SEPTDS PO; +TRAMADOL HCL50 MG PO
[2024-02-12 08:52] VITALS: BP 145/95
[2024-02-12] MEDS ORDERED: VENT7GM INH (08:55)
[2024-02-12] MEDS ORDERED: MG-AL HYDROXIDE/SIMETICONE 30 ML UDC PO ONE (09:05)
[2024-02-12] MEDS ORDERED: Lidocaine Hydrochloride 15 ML UDC PO ONE (09:05)
[2024-02-12] MEDS ORDERED: Ondansetron Hydrochloride 4 MG/2 ML VIAL IV ONE (09:05)
[2024-02-12 09:18] LABS: BASO % 0.2 % (0.0-1.0); EOS # 0.1 10*3/uL (0.0-0.4); HEMATOCRIT 41.1 % (37.0-47.0); MEAN CELL VOLUME 82.5 fl (81.0-99.0); MEAN CORPUSCULAR HGB 25.5 pg (27.0-31.0); MEAN CORPUSCULAR HGB CONC 30.9 g/dl (33.0-37.0); MEAN PLATELET VOLUME 10.2 fl (9.6-12.3); MONO # 0.9 10*3/uL (0.1-1.0); MONO % 6.7 % (3.0-9.0); NEUT # 6.7 10*3/uL (2.3-7.9); NEUT % 52.7 % (47.0-73.0); PLATELET COUNT AUTOMATED 373 10*3/uL (130-400); RED BLOOD COUNT 4.98 10*6/uL (4.10-5.10); RED CELL DISTRI WIDTH 15.4 % (0-14.5); WHITE BLOOD COUNT 12.6 10*3/uL (4.8-10.8)
[2024-02-12] MEDS ORDERED: IOHEXOL 300 MG/ML 100 ML VIAL IV ONE (09:20)
[2024-02-12 09:36] LABS: BILIRUBIN Negative (Negative); BLOOD Negative (Negative); CLARITY Cloudy (Clear); COLOR Yellow (Yellow); GLUCOSE Negative (Negative); KETONE Negative (Negative); LEUKO ESTERASE 2+ (Negative); NITRITE Negative (Negative); SPECIFIC GRAVITY 1.025 (1.001-1.030); UROBILINOGEN 0.2 E.U./dl (0.0-1.0)
[2024-02-12 09:40] LABS: ALKALINE PHOSPHATASE 72 U/L (46-116); BUN 10 mg/dl (9-23); CHLORIDE 108 mmol/L (98-107); POTASSIUM 3.5 mmol/L (3.4-5.1); SGPT/ALT 23 U/L (5-49); TOTAL PROTEIN 6.9 gm/dL (6.0-8.0)
[2024-02-12 09:54] LABS: BACTERIA 3+; EPITHELIAL CELLS 16-20; WBC 21-30 wbc/hpf (0-5)
[2024-02-12] MEDS ORDERED: Ceftriaxone Sodium 1 GM/10 ML SYR IV ONE (10:40)
[2024-02-12] MEDS ORDERED: CEPHALEXIN500 M1 PO (10:52)
== END 2024-02-12 11:41 | disposition home or self-care (01) ==
LOC: ED 08:41
PROVIDERS: Emergency Medicine
DX: N39.0 Urinary tract infection, site not specified (principal); R07.89 Other chest pain; R11.2 Nausea with vomiting, unspecified; I10 Essential (primary) hypertension; J45.909 Unspecified asthma, uncomplicated; G43.909 Migraine, unspecified, not intractable, without status migrainosus; D64.9 Anemia, unspecified; F10.10 Alcohol abuse, uncomplicated; F12.90 Cannabis use, unspecified, uncomplicated; Z88.8 Allergy status to other drugs, medicaments and biological substances; Z91.040 Latex allergy status; Z91.030 Bee allergy status; Z98.890 Other specified postprocedural states; Z90.89 Acquired absence of other organs; Z90.711 Acquired absence of uterus with remaining cervical stump; Z98.51 Tubal ligation status

== ENCOUNTER → 2024-08-16 | Outpatient (CLI) | payer OTHER ==
[~2024-08-16] MED LIST changes: +CEPHALEXIN500 M1 PO; +VENT7GM INH
[2024-08-18 10:07] LABS: TB1 Ag VALUE 0.06 IU/mL (.)
== END | disposition home or self-care (01) ==
LOC: LAB 16:22
PROVIDERS: ATTEND Nurse Practitioner Family
DX: Z11.1 Encounter for screening for respiratory tuberculosis (principal)

== ENCOUNTER → 2024-12-15 | Outpatient (CLI) | payer OTHER | END | disposition home or self-care (01) | LOC: LAB 11:17 | PROVIDERS: ATTEND Nurse Practitioner Family | DX: R30.0 Dysuria (principal) ==